=== PATIENT | female | born 1990 | race Caucasian/White ===

== ENCOUNTER 2020-01-05 23:15 | Inpatient (IN) | payer OTHER ==
[2020-01-06] MEDS: ELECTROLYTE-148 SOLN 1,000 ML IV SCH ×4 (01:00→13:56)
[2020-01-06 01:40] LABS: BASO % 0.3 % (0-2.0); EOS % 0.3 % (0-4.5); HEMATOCRIT 34.9 % (32.4-45.2); HEMOGLOBIN 11.8 GM/dL (10.7-15.3); LYMPH % 9.3 % (8-40); MCH 30.5 pg (25.7-33.7); MCHC 33.9 g/dl (32.0-36.0); MEAN PLT VOLUME 10.5 fl (7.5-11.1); MONO % 7.5 % (3.8-10.2); NEUT % 82.6 % (42.8-82.8); PLATELET COUNT 184 K/MM3 (134-434); RBC 3.88 M/mm3 (3.60-5.2); RDW 14.7 % (11.6-15.6); WHITE BLOOD COUNT 15.3 K/mm3 (4.0-10.0)
[2020-01-06 01:51] LABS: INR 0.89 (0.83-1.09); PROTHROMBIN TIME (PATIENT) 10.5 SEC (9.7-13.0)
[2020-01-06 01:59] VITALS: BMI 34.0
[2020-01-06 01:59] LABS: CALCIUM 8.8 mg/dL (8.5-10.1); CREATININE 0.9 mg/dL (0.55-1.3)
[2020-01-06] MEDS ORDERED: FENTANYL/BUPIVACAINE/NS/PF - PCEA - 50 ML DISP.SYRIN EP ONE ×6 (02:11→18:21)
[2020-01-06] MEDS ORDERED: NALOXONE HCL 0.4 MG/ML VIAL IVPUSH PRN (02:31)
[2020-01-06] MEDS ORDERED: FENTANYL/BUPIVACAINE/NS/PF - PCEA - 50 ML DISP.SYRIN EP SCH ×2 (02:45→11:09)
[2020-01-06] MEDS ORDERED: PCA PUMP NR ONE ×2 (06:41→09:32)
[2020-01-06] MEDS ORDERED: OXYTOCIN 30 UNITS in 0.9% NS 30 UNIT/500 ML INFUS.BAG IVPB SCH (07:15)
[2020-01-06] MEDS ORDERED: OXYTOCIN 30 UNITS in 0.9% NS 30 UNIT/500 ML INFUS.BAG IVPB ONE (07:27)
--- NOTE | 2020-01-06 10:08 | HP ---
Past Medical History - Admission Chief Complaint: Leakage of fluid History of Present Illness: 29 yo , @ 38 weeks gestation, EDC 01/13/20, admitted for spontaneous rupture of membrane. Upon admission there was gross pooling and cervix was 3cm dilated. History Source: Patient Limitations to Obtaining History: No Limitations - Past Medical History ...: 2 ...Para: 0 ...Term: 0 ...: 0 ...Spon : 1 ...Induced : 0 ...Living Children: 0 ...Multiple Gestation: 0 ...LMP: 04/08/19 ...EDC by Sono: 01/13/20 - Past Surgical History Past Surgical History: Yes: None Hx Myomectomy: No Hx Transabdominal Cerclage: No - Smoking History Smoking history: Never smoked Have you smoked in the past 12 months: No - Alcohol/Substance Use Hx Alcohol Use: No History of Substance Use: reports: None - Social History Usual Living Arrangement: Yes: With Significant Other History of Recent Travel: No Home Medications - Allergies Allergies/Adverse Reactions: Allergies Allergy/AdvReac Type Severity Reaction Status Date / Time No Known Allergies Allergy Verified 01/06/20 00:02 - Home Medications Home Medications: Ambulatory Orders Ferrous Sulfate [Iron] 325 mg PO BID 01/06/20 Vitamins (Sjr) - 1 tab PO DAILY 01/06/20 Family Medical History Family History: Unremarkable Review of Systems - Review of Systems Constitutional: reports: No Symptoms Cardiovascular: reports: No Symptoms Respiratory: reports: No Symptoms Gastrointestinal: reports: No Symptoms Genitourinary: reports: Other (leakage) Breasts: reports: No Symptoms Reported Musculoskeletal: reports: No Symptoms Integumentary: reports: No Symptoms Neurological: reports: No Symptoms Endocrine: reports: No Symptoms Psychiatric: reports: No Symptoms Pain Intensity: 4 Physical Exam - Maternity Vital Signs: Vital Signs Temperature 98.4 F 01/06/20 09:00 Pulse Rate 103 H 01/06/20 09:00 Respiratory Rate 18 01/06/20 09:00 Blood Pressure 104/60 01/06/20 09:00 O2 Sat by Pulse Oximetry (%) 100 01/06/20 09:00 Constitutional: Yes: No Distress Eyes: Yes: Conjunctiva Clear HENT: Yes: Atraumatic Neck: Yes: Supple Cardiovascular: Yes: Regular Rate and Rhythm Lungs: Clear to auscultation - Abdominal Exam/OB Number of Fetuses: Single Presentation: Vertex - Vaginal Exam/OB Vaginal Bleeding: No Dilatation (cm): 3 Effacement (%): 80 Amniotic Membrane Status: Ruptured Nitrazine Test: Positive Amniotic Fluid: Yes: Clear Presentation: Vertex/Position Station: -2 - Physical Exam Integumentary: Yes: WNL ...Motor Strength: WNL Psychiatric: Yes: Alert, Oriented - Labs Lab Results: CBC, BMP 01/06/20 01:00 01/06/20 01:00 Problem List - Problems (1) Spontaneous rupture of membranes Problems reviewed: Yes Code(s): MZQ7521 - Assessment/Plan Spontaneous rupture of membrane Admit to L&D Analgesia as needed Pitocin augmentation
[2020-01-06] MEDS ORDERED: BUPIVACAINE HCL/PF 0.25% (2.5MG/ML) 10 ML VIAL ONE (10:58)
[2020-01-06] MEDS ORDERED: AMPICILLIN SODIUM 2 GM VIAL ONE (15:27)
[2020-01-06] MEDS ORDERED: AMPICILLIN - 2 GM in SODIUM CHLORIDE 100 ML IVPB ONE (17:45)
[2020-01-06] MEDS: AMPICILLIN - 1 GM in SODIUM CHLORIDE 100 ML IVPB SCH (19:30)
[2020-01-06] MEDS ORDERED: AMPICILLIN SODIUM 1 GM VIAL ONE (20:24)
[2020-01-06] MEDS ORDERED: CITRIC ACID/SODIUM CITRATE 30 ML UNIT-DOSE CUP PO ONE (20:33)
--- NOTE | 2020-01-06 20:33 | PN ---
Progress Note (short form) - Note Progress Note: 29 yo , @ 39 weeks gestation, admitted for spontaneous rupture of membrane, has been on Pitocin augmentation. She's evaluated and decision made for primary after arrest of dilatation. Case discussed with patient and she agrees; She states that she's exhausted. FHR : Decrease variability, + variable decelerations [place] : + contractions VE : 7/100/0 A/P : 39 weeks gestation Arrest of dilatation Pre op for Consent signed Problem List - Problems (1) Spontaneous rupture of membranes Code(s): KAI3809 -
[2020-01-06] MEDS ORDERED: ELECTROLYTE-148 SOLN 1,000 ML IV SCH (20:45)
[2020-01-06] MEDS ORDERED: LIDO 2%/EPI 1:200000 PRESRVFRE (20 ML SDVIAL) ONE (20:59)
[2020-01-06] MEDS ORDERED: ceFAZolin SODIUM 1 GM VIAL ONE (21:16)
[2020-01-06] MEDS ORDERED: OXYTOCIN 10 UNITS/ML VIAL ONE ×2 (21:28→21:37)
[2020-01-06] MEDS ORDERED: SODIUM BICARBONATE 8.4% 50 MEQ/50 ML VIAL ONE (21:32)
[2020-01-06] MEDS ORDERED: MIDAZOLAM HCL 2 MG/2 ML SINGLE DOSE VIAL ONE (21:37)
[2020-01-06] MEDS ORDERED: KETAMINE HCL 500 MG/10 ML VIAL ONE (21:44)
[2020-01-06] MEDS ORDERED: morphine SULFATE/PF 0.5 MG/ML (2cc Syringe - QUVA) ONE ×3 (22:04)
[2020-01-06] MEDS ORDERED: ONDANSETRON 4 MG/2 ML VIAL IVPUSH PRN (22:45)
[2020-01-06] MEDS ORDERED: IBUPROFEN 800 MG/8 ML IJ IVPB ONE (22:48)
[2020-01-06] MEDS ORDERED: OXYTOCIN 20 UNITS in 0.9% NS 20 UNIT/1,000 ML INFUS.BAG IV ONE (22:49)
[2020-01-06] MEDS ORDERED: METHYLERGONOVINE MALEATE 0.2 MG/1 ML AMP IM PRN (22:55)
[2020-01-06] MEDS ORDERED: IBUPROFEN 800 MG/8 ML IJ IVPB PRN (22:55)
--- NOTE | 2020-01-06 22:59 | OP ---
Operative Note - Note: Operative Date: 01/06/20 Pre-Operative Diagnosis: Arrest of dilatation Operation: Primary Low Transverse Findings: Baby in LOP position Surgeon: Magui Atkins Binder Stripper Hand: Rc Schwartz Anesthesia: Epidural Specimens Removed: Placenta Estimated Blood Loss (mls): 600
[2020-01-06] MEDS: OXYTOCIN 20 UNITS in 0.9% NS 20 UNIT/1,000 ML INFUS.BAG IV SCH (23:00)
--- NOTE | 2020-01-06 23:06 | PN ---
Progress Note (short form) - Note Progress Note: I assisted Dr. HOLCOMB at c/section for the entirety of the case.
--- NOTE | 2020-01-07 01:20 | PN ---
Progress Note (short form) - Note Progress Note: 09.03,20. 00:30 hrs Called to pt because of soaked dressing. Removed. No active bleeding. Fresh dressing applied and held with binder. Pt. is stable.
[2020-01-07] MEDS: AMPICILLIN - 1 GM in SODIUM CHLORIDE 100 ML IVPB SCH (04:57)
[2020-01-07] MEDS: DEXTROSE 5%-LACTATED RINGERS 1,000 ML IV SCH ×2 (04:57→19:46)
[2020-01-07] MEDS: OXYTOCIN 20 UNITS in 0.9% NS 20 UNIT/1,000 ML INFUS.BAG IV SCH (07:53)
[2020-01-07 09:27] LABS: BASO % 0.3 % (0-2.0); EOS % 0.2 % (0-4.5); HEMATOCRIT 33.5 % (32.4-45.2); HEMOGLOBIN 10.9 GM/dL (10.7-15.3); LYMPH % 4.9 % (8-40); MCH 29.4 pg (25.7-33.7); MCHC 32.6 g/dl (32.0-36.0); MEAN CELL VOLUME 90.2 fl (80-96); MEAN PLT VOLUME 9.2 fl (7.5-11.1); MONO % 4.9 % (3.8-10.2); NEUT % 89.7 % (42.8-82.8); PLATELET COUNT 166 K/MM3 (134-434); RBC 3.71 M/mm3 (3.60-5.2); RDW 14.7 % (11.6-15.6); WHITE BLOOD COUNT 17.6 K/mm3 (4.0-10.0)
[2020-01-07] MEDS ORDERED: DIPHTH,PERTUSS(ACELL),TET 0.5 ML DISP.SYRIN IM ONE (10:00)
--- NOTE | 2020-01-07 15:23 | PN ---
Progress Note (short form) - Note Progress Note: Anesthesia POD#1 S/P under spinal anesthesia and DM VSS, no N/V ,Pain is bearable, Legs mobility is normal Diandra Clancy MD.
[2020-01-07] MEDS: oxyCODONE HCL 5 MG TABLET PO PRN (15:26)
[2020-01-07] MEDS: IBUPROFEN 600 MG TABLET (FP) PO PRN (15:27)
[2020-01-07] MEDS: SIMETHICONE 80 MG TAB.CHEW (FP) PO PRN (15:28)
[2020-01-07] MEDS ORDERED: BISACODYL 10 MG SUPP.RECT RC PRN (22:55)
[2020-01-08] MEDS: oxyCODONE HCL 5 MG TABLET PO PRN ×5 (01:09→23:28)
[2020-01-08] MEDS: IBUPROFEN 600 MG TABLET (FP) PO PRN ×5 (01:09→23:27)
[2020-01-08] MEDS: SIMETHICONE 80 MG TAB.CHEW (FP) PO PRN ×5 (01:10→23:28)
--- NOTE | 2020-01-08 10:11 | PN ---
Post Progress Note - Subjective Subjective: 29 yo Para 1 status post primary , seen and evaluated. She's out of bed and is ambulating. Post Day: 2 Type of Delivery: Primary C/S Vital Signs: Vital Signs Temperature 97.6 F 01/08/20 08:24 Pulse Rate 84 01/08/20 08:24 Respiratory Rate 20 01/08/20 08:24 Blood Pressure 116/67 01/08/20 08:24 O2 Sat by Pulse Oximetry (%) 96 01/08/20 08:24 Breast Exam: Yes: Soft Incision: Yes: Dressing dry and intact Abdomen/GI: Yes: Abdomen soft, Tolerating PO Lochia: Yes: Rubra Lochia, amount: Small Extremities: Yes: Calves non-tender Activity: Ambulating - Labs Labs: CBC WBC 17.6 K/mm3 (4.0-10.0) H 01/07/20 09:02 RBC 3.71 M/mm3 (3.60-5.2) 01/07/20 09:02 Hgb 10.9 GM/dL (10.7-15.3) 01/07/20 09:02 Hct 33.5 % (32.4-45.2) 01/07/20 09:02 MCV 90.2 fl (80-96) 01/07/20 09:02 MCH 29.4 pg (25.7-33.7) 01/07/20 09:02 MCHC 32.6 g/dl (32.0-36.0) 01/07/20 09:02 RDW 14.7 % (11.6-15.6) 01/07/20 09:02 Plt Count 166 K/MM3 (134-434) 01/07/20 09:02 MPV 9.2 fl (7.5-11.1) D 01/07/20 09:02 Absolute Neuts (auto) 15.8 K/mm3 (1.5-8.0) H 01/07/20 09:02 Neutrophils % 89.7 % (42.8-82.8) H 01/07/20 09:02 Lymphocytes % 4.9 % (8-40) L D 01/07/20 09:02 Monocytes % 4.9 % (3.8-10.2) 01/07/20 09:02 Eosinophils % 0.2 % (0-4.5) 01/07/20 09:02 Basophils % 0.3 % (0-2.0) 01/07/20 09:02 Nucleated RBC % 0 % (0-0) 01/07/20 09:02 Problem List - Problems (1) Spontaneous rupture of membranes Problems reviewed: Yes Code(s): KGI0361 - Assessment/Plan Status post primary Ambulation Analgesia as needed Continue post op care
--- NOTE | 2020-01-08 13:54 | PATH ---
Surgical Pathology Report Patient Name: ALISE MENDOZA Med. Rec. 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 Specimen(s) Received PLACENTA Clinical History , 39.0 weeks SROM >22 hours, rest of dilatation Final Diagnosis PLACENTA, SECTION: 436 G THIRD TRIMESTER PLACENTA WITH TRIVASCULAR UMBILICAL CORD AND UNREMARKABLE PLACENTAL MEMBRANES. Electronically Signed Joy Hagan M.D. Gross Description The specimen is received fresh labeled placenta and is a 436 gram, 17.0 x 14.0 x 2.5 cm. placenta with attached membranes and umbilical cord. The attached membranes are wilson, translucent with focal opacities and insert marginally. The umbilical cord measures 34 cm. in length and averages 1.1 cm. in diameter. The cord inserts eccentrically, 3.5 cm. to the nearest margin. No true knots or strictures are identified. Cut surface of the umbilical cord reveals 3 vessels. The surface is negro-blue with minimal fibrin deposition and appropriate caliber vessels. The maternal surface is red-brown with focal defects. Sectioning reveals red-brown, spongy parenchyma. No lesions are identified. Api Product Manager sections are submitted in three cassettes as follows: 1- membrane rolls and umbilical cord; 2-3- full thickness sections of placenta. /01/07/2020 saudi/01/07/2020
--- NOTE | 2020-01-08 17:37 | OP ---
DATE OF OPERATION: 01/06/2020 PREOPERATIVE DIAGNOSIS: Arrest of dilatation. POSTOPERATIVE DIAGNOSIS: Arrest of dilatation. PROCEDURE: Primary low transverse section. SURGEON: Magui Atkins MD. MARBLE COPER: Rc Schwartz MD. ANESTHESIA: Epidural. COMPLICATIONS: None. ESTIMATED BLOOD LOSS: 600 mL. PROCEDURE: Patient was taken to the operating room where epidural anesthesia was found to be adequate. Patient was then prepped and draped in proper sterile fashion. A Pfannenstiel skin incision was made and carried down to the underlying layer of fascia. Fascia was incised in the midline and extended laterally. The inferior aspect of the fascial incision was then grasped with a Carmelo clamp, elevated, and the rectus muscle dissected off bluntly. Attention was then turned to the superior aspect of the fascial incision, which in a similar fashion was then grasped with Carmelo clamp, elevated, and the rectus muscle dissected off bluntly. The rectus muscle was then in the midline, the peritoneum identified and entered sharply with the Metzenbaum scissors. This incision was extended superiorly and inferiorly with good visualization of the bladder, and the bladder blade was inserted. The vesicouterine peritoneum was then grasped with a pickup, and entered sharply with Metzenbaum scissors. This incision was extended laterally, and a bladder flap created digitally. The lower uterine segment was incised using a 10-blade. This incision was extended laterally, and the head delivered. Nose and mouth were suctioned, and the cord clamped and cut. A slight cut noted on the next to the right eye of the fetus, very superficial, and the parents were not notified. The baby was handed to the chief engineer research. The placenta was removed manually. The uterus exteriorized and cleared of all clots and debris. The uterine incision repaired using 0 Biosyn in a running locked fashion. The second layer of the same suture was used as a means to provide excellent hemostasis. Then the pelvis was completely irrigated, the uterus was returned to the abdomen, the peritoneum was closed using 2-0 Biosyn. The fascia was reapproximated using 0 Vicryl in a running fashion. The skin was closed in a subcuticular fashion using 3-0 Vicryl. Patient tolerated procedure well. Patient was then taken to PACU in stable condition. Pathology, placenta. MAGUI ATKINS M.D. [id number]
[2020-01-08] MEDS ORDERED: SENNOSIDES/DOCUSATE COMBO (SENNA PLUS) TABLET (UD) PO PRN (21:49)
[2020-01-08 22:30] VITALS: TEMP 98.3
[2020-01-09] MEDS: IBUPROFEN 600 MG TABLET (FP) PO PRN ×2 (03:26→09:39)
[2020-01-09] MEDS: SIMETHICONE 80 MG TAB.CHEW (FP) PO PRN ×2 (03:27→09:39)
[2020-01-09] MEDS: oxyCODONE HCL 5 MG TABLET PO PRN (03:27)
--- NOTE | 2020-01-09 06:29 | DS ---
Physical Exam-MATE FISHING VESSEL Vital Signs: Vital Signs Temperature 98.3 F 01/08/20 22:00 Pulse Rate 90 01/08/20 22:00 Respiratory Rate 20 01/08/20 22:00 Blood Pressure 125/79 01/08/20 22:00 O2 Sat by Pulse Oximetry (%) 96 01/08/20 08:24 Constitutional: Yes: Well Nourished Eyes: Yes: Conjunctiva Clear HENT: Yes: Atraumatic Neck: Yes: Supple Cardiovascular: Yes: Regular Rate and Rhythm Respiratory: Yes: Regular Gastrointestinal: Yes: Normal Bowel Sounds External Genitalia: Yes: Normal Uterus: Yes: Firm Wound/Incision: Yes: Well Approximated, Steri Strips (in place) Neurological: Yes: Alert, Oriented ...Motor Strength: WNL Psychiatric: Yes: Alert, Oriented Labs: CBC, BMP 01/07/20 09:02 01/06/20 01:00 Delivery - Delivery Type of Anesthesia: Epidural Episiotomy/Laceration: None EBL (cc): 600 Delivery, Single - Stages of Labor Date 1st Stage Initiatied: 01/05/20 Time 1st Stage Initiated: 23:00 Date of Delivery: 01/06/20 Time of Delivery: 21:27 Time Placenta Delivered: 21:28 - Condition of Primary Care Md/Joint Setter Present: Yes Name: Cortney Estrada Infant Gender: Female Weight: 5 lb 15 oz Position: Left, OP Total Hours ROM (Hrs/Mins): 23HRS - 1 Minute Total Score: 9 5 Minutes Total Score: 9 - [place] Feeding Plan Initial Plan: Elected not to breastfeed exclusively throughout hospitalization Discharge Summary Problems reviewed: Yes Reason For Visit: LABOR ADMIT Current Active Problems Spontaneous rupture of membranes (Acute) Procedures: Principal: Primary Low Transverse Hospital Course: Routine post op care Health Concerns: None Plan of Treatment: Ambulation Analgesia as needed F/U with MD in 1 week Goals: Resume regular activities in 4 weeks Condition: Good - Instructions Diet, Activity, Other Instructions: Regular diet No driving, no lifting x 4 weeks F/U with MD in one week Disposition: HOME - Home Medications Comprehensive Discharge Medication List: Ambulatory Orders Ferrous Sulfate [Iron] 325 mg PO BID 01/06/20 Vitamins (Sjr) - 1 tab PO DAILY 01/06/20
[2020-01-09 10:06] LABS: BASO % 0.3 % (0-2.0); EOS % 2.6 % (0-4.5); HEMATOCRIT 30.1 % (32.4-45.2); HEMOGLOBIN 10.3 GM/dL (10.7-15.3); LYMPH % 18.4 % (8-40); MCH 31.1 pg (25.7-33.7); MCHC 34.2 g/dl (32.0-36.0); MEAN CELL VOLUME 91.1 fl (80-96); MEAN PLT VOLUME 9.3 fl (7.5-11.1); MONO % 5.3 % (3.8-10.2); NEUT % 73.4 % (42.8-82.8); PLATELET COUNT 188 K/MM3 (134-434); RDW 14.7 % (11.6-15.6); WHITE BLOOD COUNT 9.4 K/mm3 (4.0-10.0)
[2020-01-09 10:14] VITALS: BP 132/86; PULSE 89
== END 2020-01-09 11:05 | disposition home or self-care (01) | DRG 540 ==
LOC: JLDR 23:15 → J3N 01-07 00:40
PROVIDERS: ADMIT Obstetrics & Gynecology; ATTEND Obstetrics & Gynecology
PROC: 10D00Z1 Extraction of Products of Conception, Low, Open Approach (ICD-10-PCS; principal; 2020-01-06)
DX: O62.0 Primary inadequate contractions (principal); O42.92 Full-term premature rupture of membranes, unspecified as to length of time between rupture and onset of labor; O76 Abnormality in fetal heart rate and rhythm complicating labor and delivery; Z3A.38 38 weeks gestation of pregnancy; Z37.0 Single live birth
CPT/HCPCS: 36415; 80048; 85025; 85610; 85730; 86780; 86850; 86900; 86901; 88307-TC; 90715; U0003